=== PATIENT | male | born 1980 | race Two or more races ===

== ENCOUNTER 2018-04-05 23:56 | Emergency (ER) | payer SELFPAY | END 2018-04-06 00:49 | disposition home or self-care (01) | LOC: ER 23:56 | DX: S02.5XXA Fracture of tooth (traumatic), initial encounter for closed fracture (principal); K08.89 Other specified disorders of teeth and supporting structures; X58.XXXA Exposure to other specified factors, initial encounter; Y93.89 Activity, other specified; Y92.89 Other specified places as the place of occurrence of the external cause; Y99.8 Other external cause status | CPT/HCPCS: 99283 ==